=== PATIENT | female | born 1950 | race Caucasian/White ===

== ENCOUNTER 2020-02-16 08:28 | Inpatient (IN) | payer OTHER ==
[~2020-02-16] VITALS: Ht 165.1 cm; Wt 190.5 kg
[2020-02-16 08:29] VITALS: BP 193/84
[2020-02-16 09:39] LABS: URINE BILIRUBIN NEGATIVE (Negative); URINE BLOOD TRACE (Negative); URINE CLARITY CLEAR; URINE COLOR YELLOW; URINE GLUCOSE-RANDOM* 2+ (Negative); URINE KETONES NEGATIVE (Negative); URINE NITRITE-REFLEX NEGATIVE (Negative); URINE PROTEIN (DIPSTICK) NEGATIVE (Negative); URINE SPECIFIC GRAVITY 1.015 (1.005-1.035); URINE UROBILINOGEN 0.2 E.U./dl (0.2-1.0)
[2020-02-16 09:41] LABS: URINE LEUKOCYTES-REFLEX 1+ (Negative)
[2020-02-16 09:47] LABS: ABSOLUTE NEUTROPHILS 16.5 thou/uL (1.4-8.2); EOSINOPHILS 0.2 % (0.0-3.0); HEMATOCRIT 40.3 % (37.0-47.0); LYMPHOCYTES 5.4 % (24.0-44.0); MCH 26.1 pg (26.0-34.0); MCHC 32.4 g/dL (28.0-37.0); MCV 80.7 fL (80.0-100.0); MONOCYTES 2.4 % (1.0-8.0); PLATELET COUNT 322 thou/uL (150-400); RBC 4.99 mil/uL (4.20-5.00); RDW 14.8 % (10.5-14.5); WBC 17.9 thou/uL (4.0-11.0)
[2020-02-16 09:48] LABS: AMP/METHAMP Negative (Negative); BARBITURATES Negative (Negative); BENZODIAZEPINES Negative (Negative); COCAINE Negative (Negative); METHADONE Negative (Negative); OPIATES Negative (Negative); PCP Negative (Negative)
[2020-02-16 09:57] LABS: ANION GAP 11 mmol/L (7-16); BUN 12 mg/dL (7-18); CHLORIDE 96 mmol/L (98-107); CO2 27 mmol/L (21-32); CREATININE 0.7 mg/dL (0.6-1.0); GLUCOSE 286 mg/dL (74-106); POTASSIUM 3.7 mmol/L (3.5-5.1); SODIUM 134 mmol/L (136-145)
[2020-02-16 10:07] LABS: ALBUMIN 2.7 g/dL (3.4-5.0); SGOT 26 U/L (15-37); SGPT 22 U/L (30-65); TOTAL BILIRUBIN 0.3 mg/dL (0.2-1.0); TOTAL PROTEIN 7.4 g/dL (6.4-8.2); TROPONIN-I <0.06 ng/mL (<0.06)
[2020-02-16 10:16] LABS: BACTERIA-REFLEX 1-9 Few /HPF (None Seen); CASTS None Seen /LPF (None Seen); CRYSTALS None Seen /LPF (None Seen); SQUAMOUS 4-10 Moderate /LPF (0-3); URINE RBC None Seen /HPF (0-2); URINE WBC-REFLEX 6-15 Few /HPF (0-5)
[2020-02-16] MEDS ORDERED: LEVEMIR FL100 UNIT/2 SUBQ ×2 (10:42→10:43)
[2020-02-16] MEDS ORDERED: NOVOLIN R100 UNIT/3 SUBQ (10:45)
[2020-02-16] MEDS ORDERED: NORVASC5 M1 PO (10:46)
[2020-02-16] MEDS ORDERED: ASA81BEC PO (10:46)
[2020-02-16] MEDS ORDERED: FLUOXETINE HCL20 M1 PO (10:46)
[2020-02-16] MEDS ORDERED: LISINOPRIL20 MG PO (10:47)
[2020-02-16] MEDS ORDERED: LORAZEPAM 1 MG T1 MG PO (10:48)
[2020-02-16] MEDS ORDERED: TAPAZOLE5 MG PO (10:49)
[2020-02-16] MEDS ORDERED: MEMANTINE HCL10 MG PO (10:49)
[2020-02-16] MEDS ORDERED: TRAZODONE HCL100 MG PO (10:50)
[2020-02-16] MEDS ORDERED: TOPROL XL50 MG PO (10:50)
[2020-02-16] MEDS ORDERED: ZOCOR20 MG PO (10:50)
[2020-02-16] MEDS ORDERED: OXYBUTYNIN 5 MG5 M2 PO (10:50)
[2020-02-16] MEDS ORDERED: VITAMIN B-121000 MC2 PO (10:51)
[2020-02-16] MEDS ORDERED: TYLENOL325 MG PO (10:52)
--- NOTE | 2020-02-16 13:31 | 2DMMODE ---
[facility] [place] [address] 2 D/M-MODE ECHOCARDIOGRAM Name: FELIPEHAO Fidelia Room #: 170-8 ADM IN M.R.#: [id number] Admission: 02/16/20 Attend Phys: Maira Keys MD Discharge: Date of : 52 Report #: [id number] THIS REPORT FOR: cc: FAM - Family physician unknown FAM - Family physician unknown Felipe Melgoza MD [facility] ~ APPROVED REPORT Study performed: 02/16/2020 12:54:25 EXAM: Comprehensive 2D, Doppler, and color-flow Echocardiogram Patient Location: ER Status: routine BSA: 1.80 HR: 97 bpm BP: 173/66 mmHg Other Information Study Quality: Adequate Technically limited study due to uncooperative patient/heavy breathing/lots of movement. Indications Altered mental status/demintia. HTN urgency. Hx: PAD, DM, HLP. 2D Dimensions RVDd: 31.99 mm IVSd: 10.17 (7-11mm) LVOT Diam: 18.54 (18-24mm) LVDd: 51.87 mm PWd: 9.96 (7-11mm) LVDs: 36.36 (25-40mm) Aortic Root: 26.39 mm Volumes Left Atrial Volume (Systole) Single Plane 4CH: 45.03 mL Single Plane 2CH: 32.73 mL LA ESV Index: 22.00 mL/m2 Aortic Valve AoV Peak Jeffrey.: 2.00 m/s AO Peak Gr.: 16.01 mmHg LVOT Max P.93 mmHg LVOT Max V: 1.32 m/s [facility] [address] [place] [address] 2 D/M-MODE ECHOCARDIOGRAM Name: EFLIPE,June Room #: 170-8 ADM IN Devin.#: [id number] Admission: 02/16/20 Attend Phys: Shaq Christine Discharge: Date of : 52 Report #: [id number] [id number] Vmax: 1.77 cm2 Pulmonary Valve PV Peak Jeffrey.: 1.16 m/s PV Peak Gr.: 5.42 mmHg Tricuspid Valve RAP Estimate: 5.00 mmHg Left Ventricle The left ventricle is normal size. There is normal LV segmental wall motion. There is normal left ventricular wall thickness. Left ventricular systolic function is normal. LVEF is 60-65%. This study is not technically sufficient to allow evaluation of the LV diastolic function. Right Ventricle The right ventricle is normal size. The right ventricular systolic function is normal. Atria The left atrium size is normal. The right atrium size is normal. Aortic Valve Aortic valve is mildly calcified. No aortic regurgitation is present. There is no aortic valvular stenosis. Mitral Valve The mitral valve is normal in structure. Mild mitral annular calcification. Trace mitral regurgitation. Tricuspid Valve The tricuspid valve is normal in structure. There is no tricuspid valve regurgitation noted. Trace tricuspid regurgitation. Pulmonic Valve Pulmonic valve is not well visualized. Great Vessels The aortic root is normal in size. Ascending aorta is not well visualized. IVC is normal in size and collapses >50% with inspiration. Pericardium There is no pericardial effusion. [facility] [place] [address] 2 D/M-MODE ECHOCARDIOGRAM Name: FELIPEJune Room #: 170-8 [facility] IN [facility].#: [id number] Admission: 02/16/20 Attend Phys: Shaq Christine Discharge: Date of : 52 Report #: [id number] <Conclusion> Technically difficult study Normal left ventricular size, wall thickness and systolic function Ejection fraction 60% Normal right heart size and function Normal atrial size Mild aortic valve calcification without stenosis Mild mitral valve insufficiency No tricuspid valve insufficiency No pericardial effusion <ELECTRONICALLY SIGNED> By: Felipe Melgoza MD, FACC 02/16/201330 30 30 Felipe Melgoza MD, FACC /INF
[2020-02-16 13:41] LABS: FOLIC ACID 19.6 ng/mL (8.6-58.9)
--- NOTE | 2020-02-16 14:07 | EKG ---
[facility] [place] [address] ELECTROCARDIOGRAM REPORT Name: FELIPEJune Room #: 170-8 ADM IN M.R.#: [id number] Admission: 02/16/20 Attend Phys: Maira Keys MD Discharge: Date of : 52 Report #: [id number] THIS REPORT FOR: cc: GWYN - Family physician unknown FAM - Family physician unknown Felipe Melgoza MD [facility] ~ THIS REPORT FOR: //name// [facility] ED Test Date: 2020-02-16 Test Time: 08:37:44 Pat Name: HAO MCKEON Department: Room: [facility] Gender: F Manufacturing Weaver: JCGEORGIE : 1950 Requested By: Edgardo Dougherty Order Number: [id number] MD: Felipe Melgoza Measurements Intervals Freeman Rate: 89 P: 54 AZ: 143 QRS: 4 QRSD: 78 T: 68 QT: 399 QTc: 486 Interpretive Statements Sinus rhythm Left ventricular hypertrophy Borderline prolonged QT interval No previous ECG available for comparison Electronically Signed On 02-16-2020 14:07:06 REFLOW OPERATOR by Felipe Melgoza [email or web address] <ELECTRONICALLY SIGNED> By: Felipe Melgoza MD, FACC 02/16/20 1407 Felipe Melgoza MD, [facility] /EPI
[2020-02-16 16:41] LABS: APTT 24.7 Seconds (24.5-32.8); INR 1.1; PROTIME 10.9 Seconds (9.3-11.4)
--- NOTE | 2020-02-16 17:00 | NUR ---
SPOKE WITH DR. NY REGARDING DEXTROSE AND ISLUIN ORDERS. DR. NY ORDERED TO STOP THE D10% AND RECHECK BLOOD SURGARS EVERY HOUR FOR THE NEXT COUPLE OF HOURS. THEN Q6H. HOLD INSULIN UNTIL FUTHUR NOTICE
[2020-02-16 17:05] VITALS: BP 189/102
--- NOTE | 2020-02-16 17:05 | NUR ---
Attempted to call report to inpatient nurse, was told the patient has not yet been assigned to a nurse and they will call back
[2020-02-16 17:35] VITALS: BP 158/63
--- NOTE | 2020-02-16 17:36 | NUR ---
CHRIS BOBO [phone]
[2020-02-16 18:00] VITALS: BP 151/77
--- NOTE | 2020-02-16 18:30 | NUR ---
PATIENT ARRIVED FROM THE ED VIA BED, ALERT BUT NONE REPONSIVE,MOVES HER HEAD FROM SIDE TO SIDE, VSS AND SR ON THE MONITOR. WILL CONTINUE TO MONITOR PATIENT.
[2020-02-16 19:43] VITALS: BP 151/76
[2020-02-17] VITALS (7 sets, daily range): BP systolic 149–186; BP diastolic 61–99
[2020-02-17 03:06] LABS: GLYCOHEMOGLOBIN (HGB A1C) 6.8 % (4.8-5.6)
[2020-02-17 03:59] LABS: ABSOLUTE NEUTROPHILS 10.4 thou/uL (1.4-8.2); BASOPHILS 0.8 % (0.0-2.0); EOSINOPHILS 0.2 % (0.0-3.0); HEMATOCRIT 32.5 % (37.0-47.0); HEMOGLOBIN 10.4 gm/dL (12.0-15.0); LYMPHOCYTES 7.8 % (24.0-44.0); MCH 26.1 pg (26.0-34.0); MCHC 31.8 g/dL (28.0-37.0); MCV 81.9 fL (80.0-100.0); MONOCYTES 4.2 % (1.0-8.0); PLATELET COUNT 267 thou/uL (150-400); RBC 3.98 mil/uL (4.20-5.00)
[2020-02-17 04:16] LABS: CALCIUM 8.5 mg/dL (8.5-10.1); CREATININE 0.7 mg/dL (0.6-1.0); MAGNESIUM 1.8 mg/dL (1.8-2.4); POTASSIUM 3.6 mmol/L (3.5-5.1)
[2020-02-17 04:24] LABS: CHOLESTEROL 115 mg/dL (<200); HDL CHOLESTEROL 32 mg/dL (>40); LDL CHOLESTEROL 67 mg/dL (<100); TC:HDL 3.6 Ratio (Not establshd); TRIGLYCERIDE 83 mg/dL (<150); VLDL 17 mg/dL (<40)
[2020-02-17 04:26] LABS: SERUM ASSESSMENT Clear
--- NOTE | 2020-02-17 06:45 | NUR ---
PATIENTS CARES WERE ASSUMED AT SHIFT CHANGE, PATIENT WAS ASSESSED AND MEDS WERE PASSED. PATIENT DOES HAVE A GUADALUPE DUE TO HER INCONTENT STATE. PATIENT HAS REMAINED NPO THIS SHIFT PER ORDERS. THIS PATIENT IS NON RESPONSIVE AND SHE HAS NOT BEEN ADMITTED INTO THE COMPUTER DUE TO NO FAMILY WAS WITH HER AND NO FAMILY CALLED THIS SHIFT TO CHECK ON HER FOR ME TO ASK QUESTIONS. THE BED IS IN A LOW AND LOCKED POSITION. WILL CONTINUE WITH HER CARE PLAN THAT IS IN PLACE.
--- NOTE | 2020-02-17 15:31 | NUR ---
Case opened to follow for dc planning. Case discussed with the care team and specifications writer visited with the pt's dtr Rachele via phone. Rachele indicates that she is the pt's dpoa and she has been her caregiver for several years. She reports that she also works at [employer] where the pt resides. She reports that the pt has lived there for several months due to increased issues with dementia and needing 24hr supervision in the home. She reports that the pt is sometimes paranoid and uses both a w/c and FWW for mobility. [facility] is holding her bed and they can provide intermmediate care for her. They do have part B therapies available if needed but do not offer a skilled medicare unit. The pt stays in the back part of their building as she has been known to try and elope. Pt's dtr reports the pt is a full code at this time. Neuro r/o CVA, ONC and IR consults in progress. She reports that they are awaiting onc consult for possible new dx of ovarian ca with mets. They were aware of a mass which was found during an previous ER visit, but did not realize it might be cancer. Dc plan at this time is to return to ltc at the facility. Dc order planner to fax an update to the facility. Support provided. DTr to provide dpoa document. No adv directive. 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
--- NOTE | 2020-02-17 16:10 | NUR ---
FA[facility]ED CLINICAL UPDATE [facility] RECEIVED CONFIRMATION AND LEFT MSG WITH ADM. DP TO FOLLOW.
--- NOTE | 2020-02-17 17:17 | NUR ---
ASSUMED CARE OF PT AT SHIFT CHANGE. ASSESSMENTS CHARTED. MEDS GIVEN PER MAY. PT NON-RESPONSIVE. OPENS EYES TO VOICE AND WILL FOLLOW YOU AROUND ROOM WHEN AWAKE. NO APPARENT PAIN. PARACENTESIS DID NOT PULL OFF ANY FLUID D/T LARGE VASCULAR MASS. WILL CONTINUE TO MONITOR AND FOLLOW POC.
--- NOTE | 2020-02-18 03:29 | NUR ---
ASSESSMENTS CHARTED, MEDS CHARTED GIVEN, PATIENT RESTING IN BED DURING SHIFT. PATIENT IS APHASIC. PATIENT'S EYES FOLLOW MY MOVEMENT AROUND THE ROOM, BUT DOES NOT SEEN TO UNDERSTAND WHERE SHE IS AND WHAT IS GOING ON AROUND HER. PATIENT ON ROOM AIR. NPO WITH ACCUCHECKS AT 6 AND 12'S. Q2 TURNS TO PREVENT SORES. BOTH ARM HAVE CONTRACTORS. BOTH ARMS WERE MEASURED TODAY FOR BRACES. FALL PRECAUTIONS IN PLACE DURING SHIFT. DENIED PAIN,.
[2020-02-18 04:40] VITALS: BP 152/60
[2020-02-18 09:01] VITALS: BP 162/69
--- NOTE | 2020-02-18 11:28 | HC ---
[facility] [place] [address] CONSULTATION Name: LINDA Room #: 215-P [facility] IN .R.#: [id number] Admission: 02/16/20 Attend Phys: Maira Keys MD Discharge: Date of : 52 Report #: [id number] THIS REPORT FOR: cc: GWYN - Family physician unknown GWYN - Family physician unknown Sohail Gordon MD ~ DATE OF SERVICE: 02/17/2020 ENDOCRINE CONSULTATION NOTE CONSULTING PHYSICIAN: Dr. Keys. REASON FOR CONSULTATION: Hypoglycemia, type 2 diabetes mellitus. HISTORY OF PRESENT ILLNESS: This is a 69-year-old female patient whose medical background is noted for multiple medical issues including type 2 diabetes mellitus, hypertension, dementia. The patient presented to [facility]'s ER via EMS, from her superintendent [employer] care facility at [facility] due to confusion. On arrival, the patient was nonverbal and was found to have a blood glucose of 33. Also, she was found to be hypertensive with a blood pressure of 245/105 mmHg. It appears that this decline in communication and orientation is at least partially new as per her daughter who explained that she is usually more interactive. When I interviewed the patient, she was nonverbal and unable to answer any of my questions, although she was awake and alert. However, having reviewed her custodial records, it appears that she is maintained on Levemir 65 units q.a.m. and 20 units q.p.m. in addition to Humalog supplemental scale. There was no documentation that I could review as to her blood glucose values at her custodial. Also, the patient is hypertensive and is maintained on amlodipine. She is hyperlipidemic and is maintained on simvastatin. Interestingly, the patient is noted in her custodial documents as being hyperthryroid and is maintained on methimazole 5 mg once a day. REVIEW OF SYSTEMS: Could not be obtained due to the patient's nonverbal state. PAST MEDICAL HISTORY: 1. Type 2 diabetes mellitus. 2. Hyperthyroidism. 3. Hypertension. 4. Hyperlipidemia. 5. Vascular dementia. 6. Chronic constipation. 7. Multiple TIAs in the past. [facility] [address] [place] [address] CONSULTATION Name: LINDA Room #: 215-P [facility] IN ..#: [id number] Admission: 02/16/20 Attend Phys: Maira Keys MD Discharge: Date of : 52 Report #: [id number] 8. Abdominal aortic aneurysm status post surgical treatment. OUTPATIENT MEDICATIONS: 1. Include Levemir insulin 65 units q.a.m., Levemir insulin 20 units q.p.m. 2. Humulin R insulin scale. 3. Amlodipine 5 mg daily. 4. Enteric-coated aspirin 81 mg daily. 5. Fluoxetine 20 mg daily. 6. Lisinopril 40 mg daily. 7. Lorazepam 1 mg q.i.d. 8. Methimazole 5 mg daily. 9. Metoprolol XL 50 mg daily. 10. Oxybutynin 5 mg t.i.d. 11. Simvastatin 20 mg at bedtime. 12. Trazodone 100 mg at bedtime. 13. Vitamin B12 250 mcg daily. 14. Tylenol 325 mg q. 4 hours p.r.n. ALLERGIES: She is allergic to CODEINE AND METFORMIN. FAMILY HISTORY: Noncontributory. SOCIAL HISTORY: She lives at a custodial facility. There is no active use of alcohol or illicit drugs. The patient is labeled as having been a former smoker. PHYSICAL EXAMINATION: GENERAL: female patient sitting upright in bed, appears comfortable, not in apparent distress. VITAL SIGNS: Blood pressure is 152/99 mmHg, heart rate is 95 beats per minute, respiration 18 per minute, temperature 36.9 degrees Celsius. CONSTITUTIONAL: The patient appears comfortable, not in apparent distress. HEENT: Anicteric sclerae. Intact extraocular motions. NECK: Supple, without JVD, carotid bruits or thyromegaly. CHEST: Noted for moderate air entry bilaterally with scattered rales. No wheezes or crackles. HEART: Regular rate and rhythm without murmurs or gallops. ABDOMEN: Soft, lax. No guarding. EXTREMITIES: Lower extremity exam, trace ankle edema. NEUROLOGIC: Awake, alert, but not verbal and noncooperative with neurological examination. PSYCHIATRIC: Nonverbal. She just stares back in a blank look when I asked questions. Does not seem to be anxious or upset. [address] [address] CONSULTATION Name: LINDA Room #: 215-P [facility] IN M.R.#: [id number] Admission: 02/16/20 Attend Phys: Maira Keys MD Discharge: Date of : 52 Report #: [id number] LABORATORY DATA: Blood glucose on arrival was 33, then was at 37 upon support with D5 solution. She got as high as 258 and then her dextrose 5 support was discontinued at 8:00 a.m. this morning with her blood sugar resting at 180. Since then 12:00 p.m., her blood glucose has dropped to 86 mg/dL. Sodium 138, potassium 3.6, chloride 103, CO2 of 24, anion gap 11, BUN 6, creatinine 0.7, AST 26, total bilirubin 0.3, calcium 8.5, magnesium 1.8, alkaline phosphatase 88, ALT 22, total protein 7.4, albumin 2.7, EGFR 83. Troponin is negative. Total cholesterol 115, HDL 32, LDL 67. Free T4 is 1.2. INR is 1.1. White blood count 12.0, hemoglobin 10.4, hematocrit 32.5, platelets 267. TSH 0.007. Hemoglobin A1c is 6.8%. ASSESSMENT AND PLAN: 1. Hypoglycemia. This appears to be therapeutically induced. As noted above, the patient is a combination of Levemir insulin 65 units in a.m. and 20 units q.p.m. in addition to Humulin R sliding scale. There is no indication as to how frequent or severe her baseline issues with hypoglycemia are, but she presented with severe hypoglycemia and is fair to note that she was neuroglycopenic on arrival given her confusion. Naturally, we have to be very aggressive, avoiding similar occurrences in the future, which will involve the immediate measures of dextrose support and frequent blood glucose monitoring, but also the long-term steps of scaling back her insulin intake to prevent similar occurrings. The patient had done well with dextrose support and was appropriately discontinued earlier this morning as she sustained hyperglycemia over 180. Blood glucose monitoring will continue to be done routinely and the patient will be resuscitated for emerging hypoglycemia as per the [facility] hypoglycemia protocol. 2. Type 2 diabetes mellitus. The patient appears to have very good control judging by her hemoglobin A1c, but with main concern of severe hypoglycemia, which was documented on her presentation, again, it is unclear as to how much of an issue this is at baseline, but it would be advisable to revise her hemoglobin A1c goals upward in favor of avoiding hypoglycemia completely in the future if possible. That said and as she emerges from hypoglycemia and following the cessation of dextrose support, I would refrain from prescribing any scheduled insulin at this point in time, but would provide for coverage with a Humalog supplemental scale low intensity to be used as needed for emerging hyperglycemia. Blood glucose monitoring will commence a.c. and at bedtime and further therapeutic adjustments will be made accordingly. 3. Hyperthyroidism. The patient has a documentation of hyperthyroidism and is maintained on low-dose methimazole therapy. Her free T4 level of 1.2 is indicative of adequate control despite her very suppressed TSH. I will continue with the current dose of methimazole. 4. Hyperlipidemia. The patient is maintained on simvastatin therapy at baseline. Her measured lipid panel during this hospital stay is indicative of excellent control, she is to continue with the same. [address] [address] CONSULTATION Name: LINDA Room #: 215-P [facility] IN .R.#: [id number] Admission: 02/16/20 Attend Phys: Maira Keys MD Discharge: Date of : 52 Report #: [id number] 5. Hypertension. The patient's level of blood pressure control is marginal and she was severely hypertensive on arrival. I will defer therapeutic adjustments to the primary hospital medicine team. I certainly appreciate this consultation by Dr. Keys. <ELECTRONICALLY SIGNED> By: Sohail Gordon MD 02/18/20 1128 [id number] Sohail Gordon MD /nt
[2020-02-18 13:58] VITALS: BP 157/90
[2020-02-18 16:01] VITALS: BP 136/108
--- NOTE | 2020-02-18 17:55 | NUR ---
ASSUMED CARE OF PT AT SHIFT CHANGE. ASSESSMENTS CHARTED. MEDS GIVEN PER MAY. PT NOT ALERT OR ORIENTED. MAY RESPOND NO WHEN ASKED IF IN PAIN. REMAINS NPO D/T NEURO STATUS. NO APPARENT PAIN. WILL CONTINUE TO MONITOR AND FOLLOW POC.
[2020-02-18 18:40] VITALS: BP 136/108
[2020-02-18 19:44] LABS: ABSOLUTE NEUTROPHILS 12.2 thou/uL (1.4-8.2); BASOPHILS 0.5 % (0.0-2.0); EOSINOPHILS 1.4 % (0.0-3.0); HEMATOCRIT 35.3 % (37.0-47.0); HEMOGLOBIN 11.1 gm/dL (12.0-15.0); LYMPHOCYTES 11.9 % (24.0-44.0); MCH 25.6 pg (26.0-34.0); MCHC 31.3 g/dL (28.0-37.0); MCV 81.7 fL (80.0-100.0); MONOCYTES 4.1 % (1.0-8.0); PLATELET COUNT 273 thou/uL (150-400); POLYS 82.1 % (36.0-66.0); RBC 4.32 mil/uL (4.20-5.00); RDW 14.7 % (10.5-14.5); WBC 14.8 thou/uL (4.0-11.0)
[2020-02-18 20:00] VITALS: BP 153/73
[2020-02-18 20:07] LABS: CALCIUM 8.7 mg/dL (8.5-10.1); CREATININE 0.5 mg/dL (0.6-1.0); MAGNESIUM 1.7 mg/dL (1.8-2.4)
[2020-02-18 20:16] LABS: POTASSIUM 2.8 mmol/L (3.5-5.1)
[2020-02-19 04:00] VITALS: BP 147/104
--- NOTE | 2020-02-19 04:13 | NUR ---
ASSESSMENTS CHARTED, MEDS CHARTED GIVEN. PATIENT IS BEGINNING TO SAY ONE WORD ANSWERS, AND USING THEM APPROPRIATELY. CRITICAL POTASSIUM AT START OF SHIFT. REPLACEMENT ORDER GIVEN. NEW IV PLACED IN LEFT HAND. PATIENT NPO. PATIENT HAD BOWEL MOVEMENT. FALL PRECAUTIONS IN PLACE DURING SHIFT. DENIED PAIN.
[2020-02-19 04:40] LABS: ALBUMIN 2.4 g/dL (3.4-5.0); CALCIUM 8.9 mg/dL (8.5-10.1); CREATININE 0.5 mg/dL (0.6-1.0); MAGNESIUM 2.1 mg/dL (1.8-2.4); POTASSIUM 3.6 mmol/L (3.5-5.1); TOTAL BILIRUBIN 0.4 mg/dL (0.2-1.0); TOTAL PROTEIN 6.5 g/dL (6.4-8.2)
[2020-02-19 05:07] LABS: ABSOLUTE NEUTROPHILS 12.5 thou/uL (1.4-8.2); BASOPHILS 0.7 % (0.0-2.0); HEMATOCRIT 35.7 % (37.0-47.0); HEMOGLOBIN 11.4 gm/dL (12.0-15.0); LYMPHOCYTES 10.1 % (24.0-44.0); MCH 26.2 pg (26.0-34.0); MCHC 31.9 g/dL (28.0-37.0); MCV 82.2 fL (80.0-100.0); MONOCYTES 3.8 % (1.0-8.0); PLATELET COUNT 275 thou/uL (150-400); POLYS 83.4 % (36.0-66.0); RBC 4.35 mil/uL (4.20-5.00); RDW 14.7 % (10.5-14.5)
[2020-02-19 07:56] VITALS: BP 144/109
[2020-02-19 11:59] VITALS: BP 176/109
[2020-02-19 16:50] VITALS: BP 175/93
--- NOTE | 2020-02-19 18:23 | NUR ---
BEGINNING TO SPEAK, ANSWER YES/NO QUESTIONS APPROPRIATELY. GAZE FOLLOWING. CHANGED FROM VIDHI TO KAITLYN, FROM NS TO D51/2. WILL NOT LEAVE TELE IN PLACE. ST WHEN ABLE TO OBTAIN A READING. FALL PRECAUTIONS IN PLACE; WILL CONTINUE TO FOLLOW.
[2020-02-19 20:28] VITALS: BP 185/88
[2020-02-20 04:29] VITALS: BP 126/91
[2020-02-20 06:38] LABS: BASOPHILS 0.5 % (0.0-2.0); EOSINOPHILS 1.4 % (0.0-3.0); HEMOGLOBIN 12.3 gm/dL (12.0-15.0); LYMPHOCYTES 6.4 % (24.0-44.0); MCH 25.7 pg (26.0-34.0); MCHC 31.5 g/dL (28.0-37.0); MCV 81.6 fL (80.0-100.0); MONOCYTES 3.4 % (1.0-8.0); PLATELET COUNT 282 thou/uL (150-400); POLYS 88.3 % (36.0-66.0); RBC 4.78 mil/uL (4.20-5.00); RDW 15.2 % (10.5-14.5); WBC 15.8 thou/uL (4.0-11.0)
[2020-02-20 06:44] LABS: CREATININE 0.4 mg/dL (0.6-1.0); MAGNESIUM 1.9 mg/dL (1.8-2.4); PHOSPHORUS 2.8 mg/dL (2.5-4.9); POTASSIUM 3.5 mmol/L (3.5-5.1)
--- NOTE | 2020-02-20 08:04 | NUR ---
ASSESSMENTS CHARTED, MEDS CHARTED GIVEN. PATIENT ANSWERING EASY QUESTIONS WITH YES/NO APPROPRIATELY. RECEIVING MAINTENANCE FLUIDS, NPO DURING ENTIRE SHIFT. Q6 ACCU CHECKS, NO COVERAGE WAS GIVEN SINCE NPO. NITROGLYCERIN PATCH PLACED ON RIGHT SHOULDER. FALL PRECAUTION IN PLACE DURING SHIFT. DENIED PAIN.
[2020-02-20 08:14] VITALS: BP 135/89
[2020-02-20 11:35] VITALS: BP 119/83
[2020-02-20 15:29] VITALS: BP 150/96
--- NOTE | 2020-02-20 18:30 | NUR ---
PT ASSESSED AT START OF SHIFT. NO SIGNS OF DISCOMFORT. ABLE TO ANSWER YES/NO QUESTIONS AND VERBELIZE FEW WORDS. FOLLOWING SOME COMMANDS. CALM NOT TRYING TO GET OUT OF BED. IV FLUIDS INFUSING. DAUGHTER IN TO VISIT THIS AFTERNOON. SHE IS AWAITING CALL FROM ONCOLOGY RE PT CONDITION.
[2020-02-20 19:48] VITALS: BP 138/67
[2020-02-21 05:32] VITALS: BP 151/75
[2020-02-21 08:00] VITALS: BP 169/78
--- NOTE | 2020-02-21 10:12 | NUR ---
Nutrition: Diet advanced. Calorie count started. Pt ate bites only this am per nsg. Supplements ordered. Noted likely met ovarian CA and dtr to discuss possible comfort care with family. Will followup on calorie count 02/21 as appropriate.
[2020-02-21 11:15] VITALS: BP 154/88
--- NOTE | 2020-02-21 16:02 | NUR ---
FAXED CLINICAL UPDATE TO [facility] SPOKE WITH URIEL IN ADM HE RECEIVED UPDATE AND THAT THEY CAN HAVE THERAPIES OT AND PT WORK WITH PT AT FACILITY.
--- NOTE | 2020-02-21 16:29 | NUR ---
Updated dtr cont to plan return to [facility] once stable. wanting to sp with oncologist.
[2020-02-21 16:35] VITALS: BP 137/73
--- NOTE | 2020-02-21 18:01 | NUR ---
Pt transferred from . Roc placed splints on bilateral hands. Feeder. Pt has IV metoprolol ordered. Provider was notified that med cannot be given on med surg floor. States she will change order. Frequent rounding. Fall precautions in place. Will continue to monitor.
[2020-02-21 19:34] VITALS: BP 107/49
--- NOTE | 2020-02-22 03:31 | NUR ---
ASSESSED AT START OF SHIFT. PT ALERT AND AWAKE TO SELF. ABLE TO ANSWER YES/NO QUESTIONS. BSG CHECKED INSULIN PROVIDED. NECTAR THICK LIQUID PROVIDED. PT REPOSITIONED FOR COMFORT. FOLLEY INTACT. FREQUENT ROUNDING DONE. FALL PREC IN PLACE AND WILL CONT WITH POC TILL EOS.
[2020-02-22 04:34] VITALS: BP 127/76
[2020-02-22 07:50] VITALS: BP 181/81
--- NOTE | 2020-02-22 10:52 | NUR ---
assumed care at 0700. pt is alert to self and confused. pt has left side weakness with a splint on the left hand. splint was removed during morning according to OT and splint will need to be placed during overnight babysitter. iv is on right hand and shows no signs of redness or swelling. pt denies pain, soa, dizziness. pt refused aspirin from pharmacy. I called pharmacy to see how to waste this medication as it was not in the pixs. carolin, pharmacist, told me to just throw it away and i did. insulin was given to pt. in total of 17 units of insulin this AM. glargine insulin found in [facility], showed that the expiration date is 03/20/19. contacted pharmacy and pharmacist, carolin, told me that was a typo due to confusion of end of calendar year. VSS. bp was slightly high (180's ) and was given two bp medication for patient. Reassess blood pressure and it is going down. hard abdomen. fall precaution. call light within reach. no edema on legs or feet. bilateral on foot, there is a budge. adequate appetite. ot states that she can eat food by herself for 15 minutes then after that, she will need help. will continue to monitor for blood pressure. pt is being turned every 2hours.
[2020-02-22 15:35] VITALS: BP 150/93
--- NOTE | 2020-02-22 16:15 | NUR ---
ON-GOING ASSESSMENT: CM REVIEWED CHART AND SPOKE [facility] ATTENDING AND BEDSIDE RN. PT HAS OVARIAN MASS AND SUSPECT OVARIAN CA. BIOPSY IS TO BE DONE TO COFIRM DIAGNOSIS. CM FAXED UPDATES TO [facility] AND NOTIFIED ADMISSIONS. CM ALSO LEFT VM FOR PTS DAUGTHER. CM WILL CONTINUE TO FOLLOW TO ASSIST NEEDED. PHYSICIANS NOTE MENTIONS FAMILY MAY CONSIDER HOSPICE PENDING EVALS. [facility] STATES THEY OFTEN USE [facility]. CM WILL AWAIT FURTHER RECOMMENDATIONS AND SPEAKING TO DAUGHTER.
--- NOTE | 2020-02-22 16:25 | NUR ---
I have reviewed the documentation by SIMEON ABDALLA from 02/22/20 to 02/22/20 and I concur with it. JC DONALD, PT, DPT
[2020-02-22 19:27] VITALS: BP 150/70
[2020-02-22 21:00] VITALS: BP 158/77
[2020-02-23 04:35] VITALS: BP 197/88
--- NOTE | 2020-02-23 07:28 | NUR ---
GAVE METSSITL56 MG EARLY B/P 220/106
[2020-02-23] MEDS ORDERED: TRADJENTA5 MG PO (10:10)
[2020-02-23] MEDS ORDERED: HUMALOG100 UNIT/1 SUBQ (10:10)
[2020-02-23] MEDS ORDERED: VITAMIN D21250 MC1 PO (10:10)
[2020-02-23] MEDS ORDERED: LOPRESSOR50 PO (10:10)
[2020-02-23] MEDS ORDERED: COZAAR 25 MG TA25 M1 PO (10:10)
[2020-02-23] MEDS ORDERED: ATIVAN0.5 M1 PO (10:10)
[2020-02-23] MEDS ORDERED: LANTUS SUBQ (10:10)
[2020-02-23 10:15] VITALS: BP 155/59
--- NOTE | 2020-02-23 11:01 | NUR ---
COVID 19 TEST COMPLETED RIGHT NARE TAKEN TO LAB AT THIS TIME.
--- NOTE | 2020-02-23 11:44 | NUR ---
ON-GOING ASSESSMENT: CM REVIEWED CHART AND SPOKE WITH ATTENDING WHO REPORTS PT IS STABLE TO DISCHARGE TODAY BACK TO HER FACILITY. CM SPOKE WITH PTS DAUGHTER CHRIS WHO REPORTS SHE IS WANTING PT TO ATTEMPT SNF AND SEE IF SHE CAN IMPROVE PRIOR TO CONSIDERING HOSPICE. DAUGHTER REPORTS WORKING AT THE FACILITY PT LIVES IN AND IS FAMILIAR WITH HOSPICE COMPANIES THEY USE. CM FAXED CLINICAL UPDATES TO FACILITY WELL DISCHARGE ORDERS. CM SPOKE WITH ADMISSIONS WHO REPORTS THEY CANNOT ACCEPT PT BACK TO SNF UNTIL COVID TEST IS COMPLETED. CM NOTIFIED BEDSIDE RN WELL ATTENDING AND REQUESTED THIS TEST BE DONE TONIE. DAUGHTER CHRIS REPORTS SHE IS AGREEABLE WITH DISCHARGE TO SNF SOON RESULT IS BACK. CM WILL AWAIT RESULTS OF COVID TEST. CHART COPY WAS ORDERED.
[2020-02-23 12:30] VITALS: BP 161/71
[2020-02-23 12:32] VITALS: BP 161/71
--- NOTE | 2020-02-23 17:24 | NUR ---
DISCHARGE REPORT GIVEN TO RAHEEL LUONG AT [facility]. IV ACSESS DCD GUADALUPE CATH DCD HAD 300 CC YELLOW URINE IN GUADALUPE BAG. ACCU CHECK WAS 216 AT 1705 NO INSULIN GIVEN. [facility] HERE AT 17:10 PT LEFT WITH ALL BELONGINGS. NO PAIN OR RESP DISTRESS AT DISCHARGE. TOLD NURSE THAT THIS MORNING STUDENT NURSE AND HER INSTRUCTOR REPORTED B/P OF 210/106 GAVE METOPOROL 25 MG AT 10:15 B/P WAS 155/59. AT 1230 WAS 161/71 WAS GIVEN METOPOROL 50 MG.
--- NOTE | 2020-03-09 13:47 | HC ---
[facility] [place] [address] CONSULTATION Name: LINDAJune Room #: 448-P [facility] IN M.R.#: [id number] Admission: 02/16/20 Attend Phys: Maira Keys MD Discharge: 02/23/20 Date of : 52 Report #: [id number] THIS REPORT FOR: cc: FAM - Family physician unknown FAM - Family physician unknown Clement Grant MD ~ DATE OF SERVICE: 02/16/2020 HISTORY OF PRESENT ILLNESS: This is a 69-year-old female patient who was evaluated by me in the Emergency Room. The patient was discussed with the hospitalist nurse practitioner as well as Dr. Dougherty. The patient's daughter works in a care home where the patient lives and she indicates that this patient had a blood sugar which went into 30s and since then she has been confused. She is very confused and she is spastic. In fact, she does not say anything. Her blood sugar has gone down in the past. I do not know what symptoms she gets. She has a history of TIA, but the symptoms are not clearly defined. The blood sugar has come up, blood pressure is running about 170s, but the patient is not any better. REVIEW OF SYSTEMS: Indicate she has been seen in the hospital with altered mental status. She has some hardened arteries. She is able to talk in the baseline as I understand. When she came in, not only she had hypoglycemia, she also had a pretty significant hypertension. A 14-point review of system was carried out and this was a relevant 14-point review of system. PAST MEDICAL HISTORY: Positive for TIA. History is not clearly defined. FAMILY HISTORY: Unremarkable. SOCIAL HISTORY: The patient has a supporting daughter. She is a nurse. She is familiar with the medical system. PHYSICAL EXAMINATION: The patient's examination was pretty limited. Her eyes are open. She does not say a single word. She does not follow any commands. I cannot tell if she moves anything or not because from all 4 extremities she looks spastic. I cannot carry out any further examination because the patient is not able to cooperate. IMPRESSION: Pretty difficult to form in this patient. 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 RECOMMENDATIONS: I discussed with the patient's daughter I think the fastest thing to do is to get a CT stroke perfusion stat. BUN and creatinine are good. [facility] [address] [place] [address] CONSULTATION Name: LINDAJune Room #: 448-P [facility] IN .R.#: [id number] Admission: 02/16/20 Attend Phys: Maira Kyes MD Discharge: 02/23/20 Date of : 52 Report #: [id number] I still discussed the potential side effects of that with the daughter. She also needs an MRI, though she also needs an EEG, and depending upon what those tests show and what course she takes, we may have to do further workup. She is not a TPA candidate even if she had a stroke because time of onset is not clear. I think we just have to watch, wait for the other imaging studies which has been ordered and see what that shows and what kind of clinical course she takes in next few days to decide about the diagnosis. All of it was discussed with the daughter and pros and cons were discussed in detail. ____ will follow up this patient with you from tomorrow. <ELECTRONICALLY SIGNED> By: Clement Grant MD 03/09/20 [id number] Clement Grant MD /nt
== END 2020-02-23 17:10 | DRG 637 ==
LOC: ER 08:28 → EROBS 12:12 → 2N 12:12 → 4S 02-21 15:59
PROVIDERS: Emergency Medicine; Internal Medicine; Nurse Practitioner; ADMIT Hospitalist; ATTEND Hospitalist
DX: E11.649 Type 2 diabetes mellitus with hypoglycemia without coma (principal); G93.41 Metabolic encephalopathy; E43 Unspecified severe protein-calorie malnutrition; N39.0 Urinary tract infection, site not specified; R18.8 Other ascites; Z68.44 Body mass index [BMI] 60.0-69.9, adult; G81.94 Hemiplegia, unspecified affecting left nondominant side; N83.9 Noninflammatory disorder of ovary, fallopian tube and broad ligament, unspecified; I16.0 Hypertensive urgency; F01.50 Vascular dementia, unspecified severity, without behavioral disturbance, psychotic disturbance, mood disturbance, and anxiety; Z20.828 Contact with and (suspected) exposure to other viral communicable diseases; K59.09 Other constipation; E11.51 Type 2 diabetes mellitus with diabetic peripheral angiopathy without gangrene; E78.5 Hyperlipidemia, unspecified; E05.90 Thyrotoxicosis, unspecified without thyrotoxic crisis or storm; Z66 Do not resuscitate; Z51.5 Encounter for palliative care; R13.10 Dysphagia, unspecified; D64.9 Anemia, unspecified; E55.9 Vitamin D deficiency, unspecified; Z88.6 Allergy status to analgesic agent; Z88.8 Allergy status to other drugs, medicaments and biological substances; Z87.891 Personal history of nicotine dependence; Z86.73 Personal history of transient ischemic attack (TIA), and cerebral infarction without residual deficits; Z79.82 Long term (current) use of aspirin; Z79.899 Other long term (current) drug therapy
CPT/HCPCS: 10081; 10195